=== PATIENT | male | born 1960 | race American Indian/Alaskan Native ===

== ENCOUNTER 2018-10-03 06:27 | Emergency (ER) | payer OTHER ==
[2018-10-03 06:35] VITALS: BP 141/91
[2018-10-03] MEDS ORDERED: BENADRYL PO ONE (07:19)
[2018-10-03] MEDS ORDERED: DELTASONE PO ONE (07:19)
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
== END 2018-10-03 07:43 | disposition home or self-care (01) ==
LOC: ED 06:27
DX: L24.89 Irritant contact dermatitis due to other agents (principal); F17.200 Nicotine dependence, unspecified, uncomplicated; W57.XXXA Bitten or stung by nonvenomous insect and other nonvenomous arthropods, initial encounter; Y93.89 Activity, other specified; Y92.89 Other specified places as the place of occurrence of the external cause; Y99.8 Other external cause status
CPT/HCPCS: 99282; J7512